=== PATIENT | male | born 1995 | race African-American/Black ===

== ENCOUNTER 2023-04-30 14:23 | Outpatient (CLI) | payer OTHER, SELFPAY ==
[2023-04-30 23:17] LABS: Chlamydia DNA Amplified* NOT DETECTED (No Detected); GC DNA Amplified* NOT DETECTED (No Detected)
== END 2023-04-30 14:24 | disposition home or self-care (01) ==
PROVIDERS: Visit Provider Physician Assistant
DX: R30.9 Painful micturition, unspecified (principal); Z11.3 Encounter for screening for infections with a predominantly sexual mode of transmission
CPT/HCPCS: 86703; 86803; 87491; 87591